=== PATIENT | male | born 1945 | race Hispanic/Latino ===

== ENCOUNTER 2023-06-16 09:48 | Inpatient (IN) | payer MEDICARE, OTHER ==
[~2023-06-16] VITALS: Ht 154.9 cm; Wt 65.8 kg
[2023-06-16] MEDS ORDERED: LACTATED RINGER'S 1,000 ML IV ONE (11:00)
[2023-06-16 11:05] LABS: BASOPHILS % 0.3 % (0.0-1.0); HEMATOCRIT 37.1 % (38.2-49.6); HEMOGLOBIN 13.6 g/dL (14.0-18.0); LYMPHOCYTES # (AUTO) 0.8 (1.0-3.2); LYMPHOCYTES % 8.4 % (18.0-39.1); MEAN CORPUSCULAR HEMOGLOBIN 30.6 pg (28-32); MEAN CORPUSCULAR HGB CONC 36.7 g/dL (31-35); MEAN CORPUSCULAR VOLUME 83.6 fL (81-99); MONOCYTES # (AUTO) 0.3 (0.2-0.8); MONOCYTES % 2.9 % (4.4-11.3); NEUTROPHILS # (AUTO) 8.5 (2.1-6.9); PLATELET COUNT 101 x10e3/uL (140-360); RED BLOOD COUNT 4.44 x10e6/uL (4.3-5.7); RED CELL DISTRIBUTION WIDTH 13.4 % (11.7-14.4); WHITE BLOOD COUNT 9.63 x10e3/uL (4.8-10.8)
[2023-06-16 12:09] LABS: ANION GAP 15.4 mmol/L (8-16); CALCIUM 7.9 mg/dL (8.4-10.2); CREATININE, SERUM 1.57 mg/dL (0.72-1.25); POTASSIUM 4.4 mmol/L (3.5-5.1)
[2023-06-16] MEDS ORDERED: GABAPENTIN100 MG PO (19:38)
[2023-06-16] MEDS ORDERED: METFORMIN HCL1000 MG PO (19:38)
[2023-06-16] MEDS ORDERED: ATORVASTATIN CA20 MG PO (19:38)
[2023-06-16] MEDS ORDERED: ENALAPRIL MALEA20 MG PO (19:38)
[2023-06-16] MEDS ORDERED: ASPIRIN EC81 MG PO (19:38)
[2023-06-16 20:00] VITALS: BP 108/69; O2SAT 100
[2023-06-16] MEDS ORDERED: HYDRALAZINE HCL 20 MG/ML VIAL IV PRN (20:45)
[2023-06-16] MEDS ORDERED: MAGNESIUM/ALUMINUM/SIMETHICONE 30 ML UDC PO PRN (20:45)
[2023-06-16] MEDS ORDERED: GUAIFENESIN/DEXTROMETHORPHAN LIQD 5 ML UDC PO PRN (20:45)
[2023-06-16] MEDS ORDERED: ONDANSETRON HCL INJ 2MG/ML 2ML 2 MG/ML VIAL IV PRN (20:45)
[2023-06-16] MEDS ORDERED: ACETAMINOPHEN 325 MG TAB PO PRN (20:45)
[2023-06-16] MEDS ORDERED: DEXTROSE 50% SYRINGE 50 ML IV PRN (20:45)
[2023-06-16] MEDS ORDERED: DOCUSATE SODIUM 100 MG CAP PO PRN (20:45)
[2023-06-16] MEDS ORDERED: MELATONIN 3 MG TAB PO PRN (20:45)
[2023-06-16] MEDS: INSULIN REGULAR, HUMAN 100 UNIT/1 ML SQ SCH (21:00)
[2023-06-16 21:10] VITALS: BP 108/59; PULSE 112; RESP 20; TEMP 99.9; O2SAT 100
[2023-06-17] VITALS (9 sets, daily range): BP systolic 88–118; BP diastolic 53–65; PULSE 71–116; RESP 16–21; TEMP 96.6–101; O2SAT 83–100
[2023-06-17] MEDS ORDERED: DEXAMETHASONE PHOS 4MG/ML 5ML MULTIDOSE VIAL IV SCH (01:15)
[2023-06-17] MEDS: SODIUM CHLORIDE 0.9% 1000ML 1,000 ML IV SCH ×2 (02:57→10:07)
[2023-06-17 06:21] LABS: BASOPHILS % 0.3 % (0.0-1.0); EOSINOPHILS % 0.2 % (0.0-6.0); HEMATOCRIT 32.1 % (38.2-49.6); HEMOGLOBIN 11.7 g/dL (14.0-18.0); LYMPHOCYTES # (AUTO) 0.9 (1.0-3.2); LYMPHOCYTES % 10.2 % (18.0-39.1); MEAN CORPUSCULAR HEMOGLOBIN 30.8 pg (28-32); MEAN CORPUSCULAR HGB CONC 36.4 g/dL (31-35); MEAN CORPUSCULAR VOLUME 84.5 fL (81-99); MONOCYTES # (AUTO) 0.2 (0.2-0.8); MONOCYTES % 2.6 % (4.4-11.3); NEUTROPHILS # (AUTO) 7.9 (2.1-6.9); NEUTROPHILS % 86.2 % (38.7-80.0); PLATELET COUNT 75 x10e3/uL (140-360); RED CELL DISTRIBUTION WIDTH 13.6 % (11.7-14.4); WHITE BLOOD COUNT 9.21 x10e3/uL (4.8-10.8)
[2023-06-17 07:08] LABS: ALBUMIN 2.5 g/dL (3.5-5.0); ALBUMIN/GLOBULIN RATIO 0.9 (0.8-2.0); ANION GAP 14.1 mmol/L (8-16); CALCIUM 7.7 mg/dL (8.4-10.2); CREATININE, SERUM 1.11 mg/dL (0.72-1.25); POTASSIUM 4.1 mmol/L (3.5-5.1)
[2023-06-17 07:27] LABS: THYROID STIMULATING HORMONE 0.389 uIU/mL (0.350-4.940)
[2023-06-17] MEDS: INSULIN REGULAR, HUMAN 100 UNIT/1 ML SQ SCH ×4 (07:30→19:44)
[2023-06-17 07:52] LABS: BAND NEUTROPHILS % (MANUAL) 17 %; LYMPHOCYTES % (MANUAL) 3 % (19-48); MONOCYTES % (MANUAL) 2 % (3.4-9.0); NEUTROPHILS % (MANUAL) 78 % (40-74)
[2023-06-17 07:53] LABS: PLATELET ESTIMATE MARKEDLY DECREASED; PLATELET MORPHOLOGY COMMENT NORMAL
[2023-06-17] MEDS ORDERED: ENALAPRIL MALEATE 10 MG TAB PO SCH (09:00)
[2023-06-17] MEDS: ASPIRIN 81 MG ENTERIC COATED PO SCH (09:00)
[2023-06-17] MEDS ORDERED: ATORVASTATIN 20 MG TAB PO SCH (09:00)
[2023-06-17] MEDS: THIAMINE HCL 100 MG TAB PO SCH (10:03)
[2023-06-17] MEDS: MULTIVITAMINS/MINERALS TAB PO SCH (10:07)
[2023-06-17] MEDS: DEXAMETHASONE SOD PHOS 10 MG/1 ML VIAL IV SCH (16:59)
[2023-06-17] MEDS ORDERED: SODIUM CHLORIDE 0.9% 500ML 300 ML IV SCH (20:45)
[2023-06-18] MEDS: DEXAMETHASONE SOD PHOS 10 MG/1 ML VIAL IV SCH ×2 (00:56→08:24)
[2023-06-18] MEDS: SODIUM CHLORIDE 0.9% 1000ML 1,000 ML IV SCH ×2 (03:46→11:22)
[2023-06-18 03:49] VITALS: BP 99/65; PULSE 62; RESP 16; TEMP 96.9; O2SAT 96
[2023-06-18 06:30] LABS: BASOPHILS # (AUTO) 0.1 (0.0-0.1); BASOPHILS % 0.8 % (0.0-1.0); HEMATOCRIT 29.6 % (38.2-49.6); LYMPHOCYTES # (AUTO) 0.7 (1.0-3.2); LYMPHOCYTES % 7.5 % (18.0-39.1); MEAN CORPUSCULAR HEMOGLOBIN 31.7 pg (28-32); MEAN CORPUSCULAR HGB CONC 37.2 g/dL (31-35); MEAN CORPUSCULAR VOLUME 85.3 fL (81-99); MONOCYTES # (AUTO) 0.1 (0.2-0.8); MONOCYTES % 1.4 % (4.4-11.3); NEUTROPHILS # (AUTO) 7.8 (2.1-6.9); NEUTROPHILS % 89.5 % (38.7-80.0); PLATELET COUNT 63 x10e3/uL (140-360); RED BLOOD COUNT 3.47 x10e6/uL (4.3-5.7); RED CELL DISTRIBUTION WIDTH 14.5 % (11.7-14.4); WHITE BLOOD COUNT 8.67 x10e3/uL (4.8-10.8)
[2023-06-18 06:47] LABS: INR 1.18; PARTIAL THROMBOPLASTIN TIME 37.4 seconds (23.8-35.5); PROTHROMBIN TIME 15.7 seconds (11.9-14.5)
[2023-06-18 07:01] LABS: ALBUMIN 2.2 g/dL (3.5-5.0); ALBUMIN/GLOBULIN RATIO 0.8 (0.8-2.0); ANION GAP 13.2 mmol/L (8-16); CALCIUM 7.3 mg/dL (8.4-10.2); CHOL/HDL RATIO 6.9 (3.9-4.7); CREATININE, SERUM 0.88 mg/dL (0.72-1.25); POTASSIUM 4.2 mmol/L (3.5-5.1)
[2023-06-18 07:24] LABS: THYROID STIMULATING HORMONE 0.262 uIU/mL (0.350-4.940)
[2023-06-18 08:21] VITALS: BP_SYST 141; BP_SYST 93; BP_DIAS 55; BP_DIAS 61; PULSE 80; PULSE 83; RESP 17; TEMP 97.6; TEMP 98.4; O2SAT 97; O2SAT 98
[2023-06-18] MEDS: INSULIN REGULAR, HUMAN 100 UNIT/1 ML SQ SCH ×2 (08:23→12:40)
[2023-06-18] MEDS: THIAMINE HCL 100 MG TAB PO SCH (08:24)
[2023-06-18] MEDS: MULTIVITAMINS/MINERALS TAB PO SCH (08:24)
[2023-06-18] MEDS: ASPIRIN 81 MG ENTERIC COATED PO SCH (08:25)
[2023-06-18 11:05] LABS: BAND NEUTROPHILS % (MANUAL) 6 %; LYMPHOCYTES % (MANUAL) 8 % (19-48); MONOCYTES % (MANUAL) 3 % (3.4-9.0); NEUTROPHILS % (MANUAL) 82 % (40-74); PLATELET ESTIMATE MODERATELY DECREASED; PLATELET MORPHOLOGY COMMENT NORMAL
[2023-06-18 12:42] VITALS: BP 101/65; PULSE 84; RESP 17; TEMP 97.3; O2SAT 96
== END 2023-06-18 15:25 | disposition short-term general hospital (02) | DRG 92 ==
LOC: ER 09:56 → ERHOLD 13:07 → MED/SURG3 15:19
PROVIDERS: ADMIT Internal Medicine Critical Care Medicine; ATTEND Internal Medicine Critical Care Medicine
DX: G95.89 Other specified diseases of spinal cord (principal); E87.1 Hypo-osmolality and hyponatremia; N17.9 Acute kidney failure, unspecified; S00.81XA Abrasion of other part of head, initial encounter; W01.198A Fall on same level from slipping, tripping and stumbling with subsequent striking against other object, initial encounter; Y92.89 Other specified places as the place of occurrence of the external cause; R53.1 Weakness; I10 Essential (primary) hypertension; E78.5 Hyperlipidemia, unspecified; E11.40 Type 2 diabetes mellitus with diabetic neuropathy, unspecified; E11.42 Type 2 diabetes mellitus with diabetic polyneuropathy; E78.00 Pure hypercholesterolemia, unspecified; R74.01 Elevation of levels of liver transaminase levels; F03.90 Unspecified dementia, unspecified severity, without behavioral disturbance, psychotic disturbance, mood disturbance, and anxiety; Z79.82 Long term (current) use of aspirin; Z79.84 Long term (current) use of oral hypoglycemic drugs; Z20.822 Contact with and (suspected) exposure to COVID-19; D69.6 Thrombocytopenia, unspecified
CPT/HCPCS: 36415; 70450; 72125; 72141; 76770; 80048; 80053; 80061; 82948; 83036; 83735; 84443; 85025; 85610; 85730; 99284; J1100; J3411; J7030; J7040; U0002